=== PATIENT | male | born 1940 | race Caucasian/White ===

== ENCOUNTER 2016-07-30 06:48 | Inpatient (IN) ==
[2016-07-30] MEDS ORDERED: NS 1,000 ML IV ONE (07:22)
--- NOTE | 2016-07-30 07:27 | EKG Report ---
Test Performed on : 07/30/2016 07:14:19 AM Test Reason : AMS Blood Pressure : / mmHG Vent. Rate : 080 BPM Atrial Rate : 080 BPM P-R Int : 124 ms QRS Dur : 080 ms QT Int : 360 ms P-R-T Axes : 010 044 035 degrees QTc Int : 415 ms Normal sinus rhythm. Normal ECG No previous ECGs available Unconfirmed Result
--- NOTE | 2016-07-30 07:32 | PROVIDER DOCUMENTATION ---
HPI-Syncope/Dizziness - General Chief Complaint: Dizziness Stated Complaint: DIZZINESS Time Seen by Provider: 07/30/16 07:00 Source: patient, family Allergies/Adverse Reactions: Patient Allergies Allergy/AdvReac Type Severity Reaction Status Date / Time No Known Allergies Allergy Verified 07/30/16 07:35 - History of Present Illness-Syncope/Dizzy Nature of Presenting Problem: Pt is a very functional 75 yo WM. 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 Pt does not remember any details. The witness reports that he fell w/o quitting breathing, but he kept falling asleep when they were trying to wake him up. Denies F/C/N/V/BAE/ focal weakness when seen at ER. FSBS at triage = 153. Pt is diabetic on pills. Pt is taking BP meds as well. No new medications recently. BP=80s/50s on ED arrival. Prior Episodes: reports: no prior history Onset/Duration: reports: abrupt, just prior to arrival Timing: reports: improving, gone now Position/Activity at time of episode: reports: standing Symptoms prior to episode: denies: headache, nausea/vomiting, chest pain, racing heart, confusion, injury, recent head trauma, rapid heart beat Context: reports: lost consciousness, confused after event. denies: breathing shallow, breathing stopped, lost pulse, seizure activity observed, low blood sugar Loss of Consciousness: brief (seconds) Location of injury. (If syncope resulted in an injury.): reports: none Current Symptoms: reports: weakness (Generalized weakness) Recently Seen Here or By Another Healthcare Provider: No - Dizziness Severity in ED: reports: moderate Dizziness Related Current/Associated Symptoms: reports: weakness, lightheaded, dizzy, lightheaded. denies: nausea/vomiting, headache, pale, weak pulse, headache, blurred vision, hearing loss, earache, sense of spinning, cannot walk , unable to sit up Any recent trauma/injury?: reports: none Patient usually:: reports: walks without assistance Review of Systems - Adult - REVIEW OF SYSTEMS - ADULT Constitutional: reports: naa. denies: weight gain, weight loss Eyes: reports: no symptoms reported Ears, Nose, Mouth & Throat: reports: no symptoms reported Cardiovascular: reports: see HPI, syncope. denies: chest pain, orthopnea Respiratory: reports: see HPI, chronic cough Gastrointestinal: reports: no symptoms reported Genitourinary: reports: no symptoms reported Musculoskeletal: reports: no symptoms reported Integumentary: reports: no symptoms reported Neurological: reports: see HPI, dizziness/vertigo, syncope. denies: ataxia, headache/migraines, loss of balance, numbness, paresthesia, seizure, tremors Psychiatric: reports: no symptoms reported Endocrine: reports: no symptoms reported Hematologic/Lymphatic: reports: no symptoms reported Allergic/Immunologic: reports: no symptoms reported All Other Systems: Reviewed and Negative Past History - Adult - PAST MEDICAL HISTORY-ADULT Review of Records: reports: Old Records Reviewed, Nursing Assessment Review, Medications Reviewed Physical Exam-General - PHYSICAL EXAM-ADULT Initial Vital Signs Reviewed: Yes - CONSTITUTIONAL General Appearance: appears well, alert, no apparent distress - EYES Eyes: PERRL/EOMI - HEAD, EARS, NOSE, MOUTH & THROAT HENMT: normocephalic/atraumatic, moist mucous membranes - NECK Neck: non-tender, full range of motion, supple - RESPIRATORY Respiratory: chest non-tender, lungs clear, normal breath sounds, no pleuratic chest pain, no respiratory distress, no accessory muscle use - CARDIOVASCULAR Cardiovascular: normal peripheral pulses, regular rate, rhythm, no edema, no gallop, no JVD, no murmur - GASTROINTESTINAL (ABDOMEN) Abdominal Exam: normal bowel sounds, non tender, soft, no organomegaly - MUSCULOSKELETAL Back Exam: normal inspection, no CVA tenderness Extremity: normal range of motion, normal inspection, no calf tenderness, swelling (1+ ~ 2+ pitting edema b/l daugherty area). negative: pelvis stable, calf tenderness, tenderness DTR: knee (R): 2+, knee (L): 2+ - SKIN Integumentary: normal color, normal turgor, warm/dry - NEUROLOGIC Neurologic: environmental health specialist II-XII nml as tested, grossly normal, no motor/sensory deficits . negative: aphasia, EOM palsy, facial droop, focal weakness, motor weakness, sensory deficit, negative romberg's sign - PSYCHIATRIC Psych/Mental Status: normal mood/affect, normal thought content, normal thought process, oriented x 3 Progress - PLAN OF CARE/RESULTS Progress/Plan/Lab Results: Vital Signs - 8 hr 07/30/16 06:58 07/30/16 07:15 Temperature 97.9 F Pulse Rate 80 Pulse Rate [Sitting] 81 Pulse Rate [Standing] 89 Pulse Rate [Supine] 79 Respiratory Rate 18 Blood Pressure 85/50 Blood Pressure [Sitting] 83/49 Blood Pressure [Standing] 77/48 Blood Pressure [Supine] 106/063 O2 Sat by Pulse Oximetry 99 Laboratory Results - last 24 hr 07/30/16 07/30/16 07/30/16 06:57 07:41 07:41 WBC RBC Hgb Hct MCV MCH MCHC RDW Std Deviation Plt Count MPV Immature Gran % (Auto) Neut % (Auto) Lymph % (Auto) Woods % (Auto) Eos % (Auto) Baso % (Auto) Immature Gran # (Auto) Neut # (Auto) Lymph # (Auto) Woods # (Auto) Eos # (Auto) Baso # (Auto) PT INR APTT (Factor Assay) Sodium Potassium Chloride Carbon Dioxide Anion Gap BUN Creatinine Estimated GFR/1.73 m2 BUN/Creatinine Ratio Glucose POC Glucose 153 H Calculated Osmolality Calcium Magnesium 1.3 L Total Bilirubin AST ALT Alkaline Phosphatase Creatine Kinase Troponin T Ikn-P-Nsilyyiarxh Pept 214 Total Protein Albumin Globulin Albumin/Globulin Ratio Plasma Lactate Plasma/Serum Ethyl Alc 07/30/16 07/30/16 07/30/16 07:41 07:41 07:41 WBC RBC Hgb Hct MCV MCH MCHC RDW Std Deviation Plt Count MPV Immature Gran % (Auto) Neut % (Auto) Lymph % (Auto) Woods % (Auto) Eos % (Auto) Baso % (Auto) Immature Gran # (Auto) Neut # (Auto) Lymph # (Auto) Woods # (Auto) Eos # (Auto) Baso # (Auto) PT INR APTT (Factor Assay) Sodium 137 Potassium 4.2 Chloride 102 Carbon Dioxide 24 L Anion Gap 11 BUN 23 H Creatinine 1.1 Estimated GFR/1.73 m2 > 60 BUN/Creatinine Ratio 21 Glucose 152 H POC Glucose Calculated Osmolality 280 Calcium 7.9 L Magnesium Total Bilirubin 0.30 AST 18 ALT 16 Alkaline Phosphatase 78 Creatine Kinase 117 Troponin T < 0.010 Bgr-J-Zxrbjrgrgko Pept Total Protein 5.4 L Albumin 3.2 L Globulin 2.0 Albumin/Globulin Ratio 1.0 Plasma Lactate 1.1 Plasma/Serum Ethyl Alc 07/30/16 07/30/16 07/30/16 07:41 07:41 07:41 WBC 8.22 RBC 4.40 L Hgb 12.3 L Hct 38.4 L MCV 87.3 MCH 28.0 MCHC 32.0 L RDW Std Deviation 14.2 Plt Count 238 MPV 11.7 H Immature Gran % (Auto) 0.4 Neut % (Auto) 62.5 Lymph % (Auto) 19.0 L Woods % (Auto) 13.9 H Eos % (Auto) 3.8 Baso % (Auto) 0.4 Immature Gran # (Auto) 0.03 Neut # (Auto) 5.15 Lymph # (Auto) 1.56 Woods # (Auto) 1.14 H Eos # (Auto) 0.31 Baso # (Auto) 0.03 PT 14.2 INR 1.07 APTT (Factor Assay) 31.5 Sodium Potassium Chloride Carbon Dioxide Anion Gap BUN Creatinine Estimated GFR/1.73 m2 BUN/Creatinine Ratio Glucose POC Glucose Calculated Osmolality Calcium Magnesium Total Bilirubin AST ALT Alkaline Phosphatase Creatine Kinase Troponin T Evt-B-Wpqqfylnkke Pept Total Protein Albumin Globulin Albumin/Globulin Ratio Plasma Lactate Plasma/Serum Ethyl Alc Orders Category Date Time Status Cardiac Monitoring DIRECTED Care 07/30/16 07:23 Active Finger Stick Blood Sugar (ED) DIRECTED Care 07/30/16 07:23 Active Saline Loc NOW Care 07/30/16 07:23 Active CHEST-1 VIEW [RAD] Stat Exams 07/30/16 07:23 Completed HEAD W/O CONTRAST [CT] Stat Exams 07/30/16 07:23 Completed ALCOHOL BLOOD Stat Lab 07/30/16 07:41 Completed CBC WITH ELECTRONIC DIFF [HEME] Stat Lab 07/30/16 07:41 Completed CK PROFILE [SP CHEM] Stat Lab 07/30/16 07:41 Completed COMPREHENSIVE METABOLIC PANEL [CHEM] Stat Lab 07/30/16 07:41 Completed LACTATE, PLASMA [CHEM] Stat Lab 07/30/16 07:41 Completed MAGNESIUM [CHEM] Stat Lab 07/30/16 07:41 Completed PRO B-NATRIURETIC PEPTIDE Stat Lab 07/30/16 07:41 Completed PROTIME WITH INR PL [COAG] Stat Lab 07/30/16 07:[address] [COAG] Stat Lab 07/30/16 07:41 Completed TROPONIN T Stat Lab 07/30/16 07:[address] W/POSS RFLX CULT [URINALYSIS] Stat Lab 07/30/16 07:23 Uncollected URINE DRUG SCREEN PL Stat Lab 07/30/16 07:23 Uncollected 0.9% Sodium Chloride Inj [Ns] 1,000 ml Med 07/30/16 07:22 Active IV 250 mls/hr Magnesium Hydroxide [Milk of Magnesia] Med 07/30/16 08:55 Discontinued 30 ml PO NOW ONE Pulse Oximetry Stat Oth 07/30/16 07:23 Active EKG [EKG] Stat Ther 07/30/16 07:23 Draft Result Diagrams: 07/30/16 07:41 07/30/16 07:41 - EKG 1 EKG Interpretation (*Must complete 3 of following elements*): Normal Rate: 80 Rhythm: NSR [place]: normal QRS: normal [place] Interval: normal ST Wave: normal - CONSULTS/PCP/HOSPITALIST Notification #1 *Consult/PCP/Hospitalist*: Dr. Cruz Time Discussed: :17 Consult Disposition: Admit Departure - Departure Date of Disposition Decision: 07/30/16 Time of Disposition Decision: :17 DIAGNOSIS: Syncope Qualifiers: Syncope type: unspecified Qualified Code(s): R55 - Syncope and collapse Hypotension Qualifiers: Hypotension type: unspecified hypotension type Qualified Code(s): I95.9 - Hypotension, unspecified Disposition: ADMITTED INPATIENT 09 Certified Medical Emergency: Emergent Condition: Stable Referrals and Follow-Ups: Janusz Lira MD [Primary Care Provider] - - Critical Care Note This patient required my direct & personal management of CC.: No
[2016-07-30 07:48] LABS: MANUAL DIFF NEEDED? NO
[2016-07-30 07:53] LABS: BASO% 0.4 % (0.0-0.8); EOS# 0.31 X1000 (0.0-0.7); EOS% 3.8 % (0.0-10.0); HEMATOCRIT 38.4 % (42.0-52.0); HEMOGLOBIN 12.3 g/dL (14.0-18.0); IMM GRAN# 0.03 X1000 (0.0-0.04); IMM GRAN% 0.4 % (0.0-0.5); LYMPH# 1.56 X1000 (1.2-3.4); MCV 87.3 FL (81-99); MONO# 1.14 X1000 (0.11-0.59); MONO% 13.9 % (1.7-9.3); MPV 11.7 FL (7.4-10.4); NEUT% 62.5 % (42.2-75.2); PLT 238 X1000 (130-400)
[2016-07-30 08:09] LABS: INR 1.07 (0.86-1.15); PROTIME 14.2 Seconds (12.1-15.5)
[2016-07-30 08:10] LABS: AGAP 11; ALBUMIN 3.2 g/dL (3.5-5.0); ALKALINE PHOSPHATASE 78 U/L (32-122); BUN 23 mg/dL (8-22); CALCIUM 7.9 mg/dL (8.8-10.2); CHLORIDE 102 mmol/L (98-107); CK PROFILE 117 U/L (24-204); COSMO 280; GOT 18 U/L (10-34); GPT 16 U/L (10-44); POTASSIUM 4.2 mmol/L (3.5-5.1); PTT PL 31.5 Seconds (22.6-43.9); SODIUM 137 mmol/L (136-145); TCO2 24 mmol/L (25-35); TOTAL PROTEIN 5.4 g/dL (6.3-8.3)
--- NOTE | 2016-07-30 08:14 | Diag Imaging Result Doc PS360 ---
EXAM: HEAD W/O CONTRAST - 07/30/2016 HISTORY: AMS TECHNIQUE: Dose reduction protocol COMPARISON: None FINDINGS: [There are generalized mild atrophic changes with mild ventriculomegaly. There are some chronic appearing microvascular ischemic changes. There is no indication of recent infarct, although acute infarcts may not be immediately visible. There are atherosclerotic calcifications noted at the base of the brain. There is no evidence of hemorrhage, mass effect, or midline shift.] IMPRESSION: Mild atrophic changes and chronic microvascular ischemic changes. No visible acute intracranial abnormality. Electronically signed by Jason Beavers 07/30/2016 8:11 AM
--- NOTE | 2016-07-30 08:15 | Diag Imaging Result Doc PS360 ---
EXAM: CHEST-1 VIEW - 07/30/2016 HISTORY: AMS TECHNIQUE: One view chest COMPARISON: None. FINDINGS: Heart size is normal. The projection is lordotic. There is apparent mild subsegmental atelectasis and or small pleural effusion at the lateral left base. Lungs otherwise appear clear. There is no pneumothorax seen. IMPRESSION: Mild subsegmental atelectasis and/or small pleural effusion at lateral left base. No other evidence of acute disease. Electronically signed by Jason Beavers 07/30/2016 8:13 AM
[2016-07-30] MEDS ORDERED: MILK OF MAGNESIA PO ONE (08:55)
[2016-07-30 12:37] LABS: URINE CULTURE PL NEEDED? NO
[2016-07-30 12:52] LABS: BILIRUBIN URINE NEGATIVE (NEGATIVE); BLOOD URINE NEGATIVE (NEGATIVE); CLARITY CLEAR (CLEAR); COLOR YELLOW; GLUCOSE URINE NEGATIVE (NEGATIVE); LEUKOCYTES URINE NEGATIVE (NEGATIVE); NITRITE URINE NEGATIVE (NEGATIVE); PROTEIN URINE NEGATIVE (NEGATIVE); SP GRAVITY URINE 1.015; UROBILINOGEN URINE 4+(12 mg/dL)
[2016-07-30 12:54] LABS: URINE CAST NONE SEEN /LPF; URINE CRYSTAL NONE SEEN /HPF; URINE EPITHELIAL CELLS <10 /HPF (<10); URINE RBC <10 /HPF (<10); URINE SOURCE CLEAN CATCH; URINE WBC <10 /HPF (<10)
[2016-07-30] MEDS ORDERED: MAGNESIUM SULFATE 4 GM/S.W.I. 4 GM/100 ML IVPB IV ONE (14:32)
--- NOTE | 2016-07-30 15:15 | HISTORY AND PHYSICAL ---
PRIMARY CARE PHYSICIAN: Dr. Janusz Lira CHIEF COMPLAINT: Syncopal episode. 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 It was witnessed by family members. The patient states he does not remember any of the details. He did not lose any consciousness but was lethargic. When he arrived to the emergency room, he was noted to have a blood pressure of 85/50. Orthostatic blood pressures were obtained that showed a lying blood pressure of 106/63 with a heart rate of 79; sitting 83/49 with a heart rate of 81 and standing 77/48 with a pulse of 89. He was also noted on his laboratory data to have a magnesium level of 1.3. His blood sugar was 152 on arrival. Cardiac enzymes were negative. A head CT was performed that showed mild atrophic changes and chronic microvascular ischemic changes but no visible acute intracranial abnormality. In the emergency room, he was given a liter bolus of normal saline, and his blood pressure came up to 132/79, and he was admitted for further evaluation and treatment. PAST MEDICAL HISTORY: Hypertension, diabetes type 2, hypothyroidism, and diabetic retinopathy. PAST SURGICAL HISTORY: Right 2nd toe amputation, an inguinal hernia repair, and a tonsillectomy. FAMILY HISTORY: Noncontributory. SOCIAL HISTORY: He currently lives alone. Denies any tobacco, alcohol, or illicit drug use. ALLERGIES: No known drug allergies. HOME MEDICATIONS: A current list of home medications will be obtained, and we will restart those as appropriate. LABORATORY DATA: White blood cell count of 8.22, hemoglobin 12.3, hematocrit 38.4, platelets 238,000. PT and INR of 14.2 and 1.07. Sodium of 137, potassium 4.2, chloride 102, CO2 of 24. BUN of 23, creatinine 1.1. Glucose 152. Magnesium 1.3. Cardiac enzymes were negative. ProBNP 214. Plasma lactate 1.1. Urinalysis was negative. Serum alcohol level showed none detected. Chest x-ray showed mild subsegmental atelectasis and/or a pleural effusion at the lateral left base but no other evidence of acute disease. Head CT showed mild atrophic changes and chronic microvascular ischemic changes. No visible acute intracranial abnormality. EKG on arrival showed normal sinus rhythm at 80. REVIEW OF SYSTEMS: He denied any blurred vision, dizziness, chest pain, coughing, shortness of breath. He denied any constipation, diarrhea, nausea, vomiting, burning, or hurting with urination. PHYSICAL EXAMINATION: VITAL SIGNS: On arrival, he had a temperature of 97.9 degrees, a pulse of 80, respirations 18, blood pressure 85/50. Orthostatic blood pressures were obtained that showed a lying blood pressure of 106/63 with a heart rate of 79; sitting 83/49 with a heart rate of 81 and standing 77/48 with a pulse of 89. His blood pressure is now up to 137/62. GENERAL: This is a 75-year-old male, who is lying in the bed and answers questions appropriately. HEENT: Normocephalic and atraumatic. Pupils are equal, round, reactive to light. Extraocular movements are intact. The oropharynx and nares are clear. NECK: Supple. LUNGS: Clear to auscultation bilaterally with equal lung expansion and chest wall movement. HEART: With regular rate and rhythm. No murmurs, rubs, or gallops. ABDOMEN: Soft, nontender, nondistended. Bowel sounds are present x4 quadrants. EXTREMITIES: No clubbing, cyanosis, or edema. NEUROLOGIC: The cranial nerves 2-12 appear grossly intact. ASSESSMENT: 1. Syncope. 2. Orthostatic hypotension. 3. Hypomagnesemia. 4. Diabetes, type 2. PLAN: He was admitted to the medical unit at [place], placed on telemetry. We will check a carotid ultrasound and an echocardiogram. Check a urine drug screen. We will give him magnesium sulfate 4 g IV and will recheck a CBC, BMP, and magnesium level in the a.m., and we will again verify his home medications and restart those as appropriate. Dictated by MORTEZA Johnston for Luis Cruz MD cc: MORTEZA Johnston MD David Francis, MD
--- NOTE | 2016-07-30 16:48 | Extremity Venous Study ---
Carotid Ultrasound - 07/30/2016 INDICATION: syncope TECHNIQUE: Bilateral carotid artery Doppler ultrasound COMPARISON: None FINDINGS: On the right side, there is heavy shadowing calcified plaque in the bulb and proximal internal carotid artery. Maximum velocity is 331 cm/s at the carotid bulb. This is compatible with critical, 80-99% stenosis. On the left side, there is severe shadowing plaque in the carotid bulb and proximal internal carotid artery. There is also severely elevated velocity here, measuring 333 cm/s, in the proximal internal carotid artery. This also indicates critical stenosis of 80-99%. The vertebral arteries are patent bilaterally with good flow. IMPRESSION: Critical stenosis of the carotid artery systems bilaterally. Further evaluation recommended with a CT angiogram of the neck and head. Electronically signed by Jatin Theodore 07/30/2016 4:45 PM
--- NOTE | 2016-07-30 17:39 | CONSULTATION ---
DATE OF CONSULTATION: 07/30/2016 CHIEF COMPLAINT: Syncope. HISTORY: This is a 75-year-old gentleman who was going to the office this morning and seemed to lose consciousness. He just became lethargic, had difficulties talking and his daughter said he seemed like he was drunk. He was noted to have a low blood pressure, 85 systolic. He is on any hypertensive medication at home. His daughter said he had a similar episode on weekend and it was attributed to low blood pressure. OTHER MEDICAL PROBLEMS: Type 2 diabetes, hypothyroidism. PREVIOUS SURGERY: Right 2nd toe amputation, inguinal hernia repair and tonsillectomy. SOCIAL HISTORY: He lives alone. He denies tobacco, alcohol or illicit drug use. FAMILY HISTORY: Noncontributory. HOME MEDICATIONS: Xanax 1 mg t.i.d., Onglyza 5 mg daily, Lipitor 20 mg daily, metformin 1000 mg daily, Myrbetriq 50 mg daily, Altace 10 mg daily and thyroid at bedtime. ALLERGIES: He has no known drug allergies. REVIEW OF SYSTEMS: As noted above. He denies any lateralizing symptoms. PHYSICAL EXAMINATION: Vital Signs: He is afebrile. Heart rate is 81, blood pressure is 139/68. He is awake, alert and oriented. No cervical adenopathy. Lungs: Bilateral breath sounds. Heart: Regular rate and rhythm. Abdomen: Soft. No peripheral edema. Extremities: He has good strength in both upper extremities and both lower extremities. DIAGNOSTICS: His carotid imaging implies some stenosis of his internal carotids bilaterally. The systolic velocities in the internals are 333. I do not know what the diastolic velocities were. ASSESSMENT: This sounds like he has syncope as a result of hypotension. He is coincidentally found to have carotid disease bilaterally. We can further evaluate this was CT angiography and I have recommended that. I think possibly some of his antihypertensives we will have to be held until his blood pressure improves. Thanks for the opportunity to see him. cc: Jean Claude Paul MD
[2016-07-30 18:03] LABS: UR AMPHETAMINES QUAL NONE DETECTED (NONE DETECT); UR BARBITUATES QUAL NONE DETECTED (NONE DETECT); UR BENZODIAZEPIN QUAL PRESUMPTIVE POSITIVE (NONE DETECT); UR CANNABINOIDS QUAL NONE DETECTED (NONE DETECT); UR COCAINE QUAL NONE DETECTED (NONE DETECT); UR MDMA QUAL NONE DETECTED (NONE DETECT); UR METHADONE QUAL NONE DETECTED (NONE DETECT); UR METHAMPHETAMINE QUAL NONE DETECTED (NONE DETECT); UR OPIATES QUAL NONE DETECTED (NONE DETECT); UR OXYCODONE QUAL NONE DETECTED (NONE DETECT); UR PCP QUAL NONE DETECTED (NONE DETECT); UR TCA QUAL NONE DETECTED (NONE DETECT)
--- NOTE | 2016-07-30 19:00 | Diag Imaging Result Doc PS360 ---
ANGIOGRAM/NECK - 07/30/2016 INDICATION: jari carotid stenosis 80-99% TECHNIQUE: Axial CT images were obtained after administering intravenous contrast. Three-dimensional angiographic images were generated. A CT dose reduction protocol was used. COMPARISON: Carotid ultrasound from earlier today FINDINGS: The aortic arch and the great vessel origins are normal. On the right side, there is critical stenosis of the origin of the internal carotid artery. There is about 75% narrowing with dense calcified plaque. This plaque also involves the carotid bulb. On the left side, there is some similar, critical stenosis of the origin of the internal carotid artery. This is also narrowed by about 75%. The remainders of the internal carotid arteries are patent. The vertebral arteries are patent and codominant. There is reversal of the normal cervical lordosis. No fracture or subluxation. There is severe degenerative disc disease at C5-6 and C6-7. At C3-4 there is a large central disc protrusion causing moderate central canal stenosis. At the C4-5, there is a disc bulge causing [id number] central canal stenosis. At C5-6 and C6-7, there are large disc bulges causing moderate central canal stenosis. IMPRESSION: 1. Critical stenosis of the origins of the internal carotid arteries bilaterally. 2. Advanced cervical spondylosis. Electronically signed by Jatin Theodore 07/30/2016 6:57 PM
[2016-07-31 07:28] LABS: MANUAL DIFF NEEDED? NO
[2016-07-31 07:38] LABS: BASO% 0.5 % (0.0-0.8); EOS# 0.27 X1000 (0.0-0.7); EOS% 4.2 % (0.0-10.0); HEMATOCRIT 39.5 % (42.0-52.0); HEMOGLOBIN 12.7 g/dL (14.0-18.0); IMM GRAN# 0.02 X1000 (0.0-0.04); IMM GRAN% 0.3 % (0.0-0.5); LYMPH% 20.1 % (20.5-51.1); MCH 27.9 PG (27-31); MCHC 32.2 g/dL (33-37); MCV 86.8 FL (81-99); MONO# 0.75 X1000 (0.11-0.59); MONO% 11.6 % (1.7-9.3); MPV 11.6 FL (7.4-10.4); NEUT% 63.3 % (42.2-75.2); PLT 224 X1000 (130-400); RBC 4.55 XMIL (4.7-6.1)
[2016-07-31 07:52] VITALS: BP 130/77
[2016-07-31] MEDS ORDERED: XANAX PO PRN (08:10)
[2016-07-31 08:14] LABS: AGAP 10; BUN 17 mg/dL (8-22); CALCIUM 8.2 mg/dL (8.8-10.2); CHLORIDE 102 mmol/L (98-107); COSMO 277; POTASSIUM 4.3 mmol/L (3.5-5.1); SODIUM 137 mmol/L (136-145); TCO2 25 mmol/L (25-35)
[2016-07-31] MEDS ORDERED: ALTACE PO SCH (09:00)
[2016-07-31] MEDS ORDERED: MYRBETRIQ E.R. PO SCH (09:00)
[2016-07-31] MEDS ORDERED: GLUCOPHAGE XR PO SCH (09:00)
[2016-07-31] MEDS ORDERED: ONGLYZA PO SCH (09:00)
--- NOTE | 2016-07-31 09:44 | ECHO REPORT ---
ORDER DATE: 07/30/2016 INTERPRETING PHYSICIAN: Dr. Munoz REQUESTING PHYSICIAN: CLINICAL INDICATIONS: This is a 75-year-old male with syncope, mental status changes. M-MODE MEASUREMENTS: Right ventricle: 2.4 cm. Left ventricle end diastole: 4.7 cm. Left ventricle end systole: 2.9 cm. Posterior wall: 1.9 cm. Interventricular septum: 1.9 cm. Left atrium: 3.8 cm. Aortic root: 3.6 cm. SUMMARY OF 2-DIMENSIONAL IMAGIN. The study is technically difficult. 2. Left ventricular function is normal. Ejection fraction is 58%. The chamber is not dilated. There is no left ventricular hypertrophy. 3. Right ventricle appears to be normal. 4. The atria appear to be normal. There is prominent epicardial fat pad. 5. Pulmonic valve looks normal. Color flow mapping is unremarkable. 6. Tricuspid valve looks normal. Color flow mapping indicates mild degree of regurgitation. 7. Inferior vena cava is not dilated. 8. Pulmonary pressure is normal. It is estimated to be somewhere in the range of 25 mmHg. 9. Mitral valve looks normal. Color flow mapping is unremarkable. 10.Pulse wave Doppler of mitral inflow shows mild reversal of the E and the A wave. 11.Tissue Doppler of septal and lateral mitral annulus averages 6.5 cm. 12.Pulse wave Doppler of pulmonary venous flow is normal. 13.There is no diastolic dysfunction. 14.Aortic valve was normal. Color flow mapping is unremarkable. There is no stenosis. There is no regurgitation. 15.There is no evidence of masses or thrombus. 16.Physiologic pericardial effusion may be present. CONCLUSIONS: 1. Normal left ventricular systolic function. 2. Normal diastolic function. 3. No evidence of any significant valvular abnormality. 4. No evidence of pulmonary hypertension. 5. This study was technically difficult. Clinical correlation is recommended. cc: MD Kia Escobar CRNP
--- NOTE | 2016-07-31 12:54 | DISCHARGE SUMMARY ---
ADMISSION DATE: 07/30/2016 DISCHARGE DATE: 07/31/2016 PRIMARY CARE PHYSICIAN: Dr. Janusz Lira. ADMISSION DIAGNOSES: 1. Syncope. 2. Orthostatic hypotension. 3. Hypomagnesemia. 4. Diabetes type 2. DISCHARGE DIAGNOSES: 1. Syncope, resolved. 2. Orthostatic hypotension, resolved. 3. Hypomagnesemia, resolved. 4. Bilateral carotid stenosis. 5. Diabetes type 2. SUMMARY OF FINDINGS: This is a 75-year-old male, who came to the emergency room after he had a syncopal episode that was witnessed by family members outside of the family business. The patient did not remember any details but family states that he did not lose any consciousness but was lethargic. When he arrived to the emergency room he had a blood pressure of 85/50. Orthostatics were obtained and showed a lying of 106/63, a sitting of 83/49, and a standing of 77/48. He was given a liter bolus of normal saline at 250 mL an hour and his blood pressure came up to 132/79. Cardiac enzymes were negative. A CT of the head showed mild atrophic changes and chronic microvascular ischemic changes but no visible acute intracranial abnormality. He was admitted. We held his antihypertensives. We gave him a magnesium sulfate 4 g IV. We checked a carotid Doppler ultrasound that was found to have critical stenosis of the carotid arteries systems bilaterally. We did an neck CTA that showed critical stenosis of the origins of the internal carotid arteries bilaterally. We consulted Dr. Paul from vascular surgery who saw the patient and feels that this can be worked up on an outpatient basis. His blood pressure today is still within normal limits at 130/77. His echocardiogram showed an ejection fraction of 58% with left ventricular function being normal. No diastolic dysfunction noted, so it is felt that he can be discharged home today. DISCHARGE MEDICATIONS: 1. He will need to hold his ramipril until seen by his primary care physician. 2. He will continue 1 mg p.o. t.i.d. 3. Lipitor 20 mg p.o. daily. 4. Metformin 1000 mg p.o. daily. 5. Myrbetriq 50 mg p.o. daily. 6. Onglyza 5 mg p.o. daily 7. Thyroid pork 97.5 mg p.o. at bedtime. FOLLOWUP: He will follow with his primary care physician in 1-2 weeks and he will also follow up with the vascular surgeon, Dr. Paul in 1-2 weeks and call the office for appointments on both. All discharge instructions have been reviewed with the patient and he verbalized understanding/ DISCHARGE TIME: 35 minutes. Dictated by MORTEZA Johnston for Luis Cruz MD cc: MORTEZA Johnston MD David Francis, MD Robert C. Walker, MD
[2016-07-31] MEDS ORDERED: LIPITOR PO SCH (21:00)
[2016-07-31] MEDS ORDERED: THYROID PO SCH (21:00)
== END 2016-07-31 12:33 | disposition home or self-care (01) ==
LOC: P.ED 06:48 → P.MEDSURG 12:35
PROVIDERS: ATTEND Family Medicine